=== PATIENT | female | born 1985 | race Caucasian/White ===

== ENCOUNTER 2023-07-15 12:54 | Emergency (ER) | payer BC, SELFPAY ==
[2023-07-15 12:55] VITALS: BP 143/75; PULSE 50; RESP 16; TEMP 36.9; O2SAT 98; BMI 38.7
--- NOTE | 2023-07-15 13:05 | XR_ITS ---
FINAL REPORT CLINICAL HISTORY: bruising FINDINGS: Right tibia fibula Two views were obtained. There is no acute fracture or dislocation. The joint spaces appear normal. There is a moderate plantar calcaneal spur. There are multiple soft tissue calcifications, probably related to varicosities. IMPRESSION: No acute process. Reviewed, Interpreted and Dictated by Omid Rodriguez MD Transcribed by Janeth Salas Authenticated and . [facility]
--- NOTE | 2023-07-15 13:05 | CA_ITS ---
FINAL REPORT TECHNIQUE: Ultrasound images of the deep venous system were obtained from the right groin to the calf veins. CLINICAL HISTORY: bruising, nodule, tender FINDINGS: The deep venous system is normally compressible. Normal flow is identified. IMPRESSION: No evidence of right lower extremity DVT. Reviewed, Interpreted and Dictated by Omid Rodriguez MD Transcribed by Francisco Javier Hunter Authenticated and [facility]
--- NOTE | 2023-07-15 13:09 | HMH.EDGENADL ---
Discharge Plan Disposition Patient Disposition: Home, Self-Care Condition: Good Referrals Follow up/Referrals: Aaliyah Krishnamurthy [Primary Care Provider] - See instructions Activity Restrictions/Add. Instructions Additional Instructions/Restrictions: You were evaluated in the emergency department today for bruising/nodule on your right lower extremity. We do not appreciate any fracture, DVT, or other abnormality. Please follow-up with your primary care physician for reevaluation as soon as possible. Return to the emergency department with new, worsening, or otherwise concerning symptoms. Clinical Impressions Clinical Impression: Traumatic ecchymosis of right lower leg Qualifiers: Encounter type: initial encounter Qualified Code(s): S80.11XA - Contusion of right lower leg, initial encounter Stand Alone Forms Stand Alone Forms: Work/School Release Instructions Patient Instructions: DI for Leg Pain Discharge ED Provider: Judith Montgomery General Adult HPI General Chief complaint: Extremity Problem,Nontraumatic Stated complaint: possible knot on Rt leg, bruising Time Seen by Provider: 07/15/23 13:03 History of Present Illness HPI narrative: Kaia 38-year-old female presents to the emergency department with concerns of bruise on her distal right lower extremity as well as a palpable knot. Patient states she is clumsy and often runs in things but does not recall striking the medial aspect of her leg on anything. Patient states about 2 weeks ago she struck the lateral aspect of this leg on something but that bruise has gone away. She states a few days ago she started developing bruising on the medial part of this left leg and can feel a hard knot about the diameter of a harry. She states she is worried it may be a blood clot. Patient states she does not have significant easy bleeding or bruising, but does often have bruises on her. She does not take any daily medications, no known drug allergies. Related Data Allergies Allergy/AdvReac Type Severity Reaction Status Date / Time No Known Allergies Allergy Verified 07/15/23 13:40 [facility] Disclaimer: The information contained in this section may have been updated after the patient was seen, as this information can be updated by other users. Social History Smoking Status: Current every day smoker alcohol intake: never current occupational status: other Travel in the last 8 weeks: None ROS Obtained: Yes All systems reviewed & no additional complaints except as documented Constitutional Constitutional: Denies chills, Denies fever(s), Denies headache(s) and Denies weakness Eyes Eyes: Denies change in vision ENT Ears, Nose, Mouth, and Throat: Denies dizziness, Denies headache(s), Denies nasal congestion and Denies sore throat Cardiovascular Cardiovascular: Denies chest pain, Denies dyspnea and Denies leg edema Respiratory Respiratory: Denies cough and Denies dyspnea Gastrointestinal Gastrointestingal: Denies constipation, diarrhea, nausea or vomiting Genitourinary Female Genitourinary: Denies dysuria Musculoskeletal Musculoskeletal: Denies arthralgias, Denies myalgias, Denies numbness and Denies tingling Comments: Bruise on medial aspect of right distal lower extremity with knot that patient points out Integumentary/Breasts Skin/Breast: Denies change in pigmentation Neurologic Neurologic: Denies dizziness, Denies headache(s), Denies numbness, Denies tingling and Denies weakness Physical Exam General General appearance: alert and in no apparent distress Head Head exam: atraumatic and normocephalic Eye Eye exam: Present PERRL and EOMI ENT ENT exam: Present mucous membranes moist Neck Neck exam: Present normal inspection and full ROM Chest Chest inspection: Present symmetric chest wall rise Respiratory Respiratory exam: Absent respiratory distress or stridor Cardiovascular Cardiovascular exam: Present regular rate and normal rhythm Abdominal Exam
--- NOTE | 2023-07-15 13:13 | PC.NURSE ---
blood sent to lab
[2023-07-15 13:24] LABS: Basophils # 0.1 K/mm3 (0-0.2); Basophils % 0.8 % (0.1-2.0); Eosinophils # 0.3 K/mm3 (0.0-0.4); Eosinophils % 3.6 % (0.1-12.0); Lymphocytes # 1.6 K/mm3 (0.7-4.5); Lymphocytes % 23.8 % (10-50); Mean Corpuscular HGB Conc 33.3 g/dL (31.8-35.4); Mean Corpuscular Hemoglobin 29.8 pg (27.0-31.2); Mean Corpuscular Volume 89.7 fl (81-99); Monocytes # 0.2 K/mm3 (0.1-1.0); Monocytes % 3.3 % (1.7-9.3); Neutrophils # 4.7 K/mm3 (1.8-7.8); Neutrophils % 68.6 % (37.0-80.0); Platelet Count 204 K/mm3 (142-424); Red Blood Count 5.02 M/mm3 (4.20-5.40); Red Cell Distribution Width 13.1 % (11.5-17.5); White Blood Count 6.9 K/mm3 (4.8-10.8)
[2023-07-15 13:34] LABS: Albumin Level 4.3 g/dl (3.5-5.0); Albumin/Globulin Ratio 1.3 (1.1-1.8); Calcium 8.8 mg/dl (8.4-10.2); Chloride 106 mmol/L (98-107); Globulin 3.3 g/dL (1.3-3.2); Glucose 89 mg/dl (74-100); Potassium 3.7 mmoL/L (3.5-5.1); Sodium 140 mmol/L (136-145); Total Protein,Serum 7.6 g/dl (6.3-8.2)
[2023-07-15 13:36] LABS: Activated Partial Thrombo Time 27.3 seconds (22.8-30.6); INR 1.05 (0.9-1.1); Prothrombin Time 11.3 seconds (10.1-12.5)
[2023-07-15 13:42] LABS: HCG Qualitative, Serum Negative (Negative)
[2023-07-15 13:52] LABS: Alanine Aminotransferase 22 U/L (12-78); Alkaline Phosphatase 77 U/L (38-126); Anion Gap 10.7 mEq/L (5-15); Aspartate Amino Transferase 33 U/L (14-36); Bilirubin,Total 0.6 mg/dl (0.2-1.3); Blood Urea Nitrogen 20 mg/dl (7-17); Carbon Dioxide 27 mmol/L (22.0-30.0); Creatinine Clearance Estimated 162 mL/min (50-200); Estimated Glomerular Filt Rate 93 ml/min (>60); GFR (African American) 112 ML/MIN (>60)
--- NOTE | 2023-07-15 14:09 | PC.NURSE ---
vascular here for doppler study
--- NOTE | 2023-07-15 14:20 | PC.NURSE ---
per CV lab staff pt negative for DVT
--- NOTE | 2023-07-15 14:56 | PC.NURSE ---
pt to xray via wheelchair
[2023-07-15 15:38] VITALS: BP 140/70; PULSE 80; RESP 18; TEMP 36.8; O2SAT 98
== END 2023-07-15 15:42 | disposition home or self-care (01) ==
PROVIDERS: Emergency Provider Emergency Medicine; PCP Family Medicine
DX: S80.11XA Contusion of right lower leg, initial encounter (principal)
CPT/HCPCS: 73590; 80053; 84703; 85025; 85610; 85730; 93971; 99284; 99285